=== PATIENT | female | born 1990 | race Caucasian/White ===

== ENCOUNTER 2017-03-21 09:47 | Emergency (ER) | payer BC ==
[~2017-03-21] VITALS: Ht 160 cm; Wt 71.0 kg
[~2017-03-21 09:47] MED LIST: LABE100T PO; NF-TORA10 PO; NORG1TAB14 PO; ONDAN4ODT PO; TAMS0.4C2 PO
--- OUTSIDE RECORDS SUMMARY | 2017-03-21 09:52 | XMS REPORT | Continuity of Care Document ---
Author Author [facility] Organization [facility] Address Unknown Phone Unavailable Support Name Relationship Address Phone MICKEY BERMUDEZ MD Caregiver [address] [place], [place] [address] JUAN HOOVER Next Of Kin [address] [place] [address] Insurance Providers Payer Name Policy Number Subscriber Name Relationship [facility] [id number] Juan Hoover R 01 Chief Complaint and Reason for Visit Chief Complaint Pain Reason for Visit [id number] Problems Medical Problems Problem Onset Date Status Ureterolithiasis ~06/04/2015 Active Medications Medication Dose Route Sig Days/Qty Instructions Order Date Discontinued Date Status Labetalol Hcl (Normodyne) 100 Mg ORAL TWICE A DAY 06/05/15 Active Tamsulosin Hcl 0.4 Mg ORAL DAILY 5 Qty 06/05/15 Active Ketorolac Tromethamine 10 Mg ORAL EVERY 6 HOURS PRN PAIN 12 Qty Active Ondansetron Hcl 4 Mg ORAL EVERY 4HRS PRN NAUSEA/VOMITING 10 Qty Active Social History No social history. Hospital Discharge Instructions No hospital discharge instructions. Plan of Care Discharge Date 06/05/15 5:16am Disposition 01 HOME OR SELF-CARE Condition at Discharge Stable Instructions/Education Provided Nephrolithiasis (ED) Prescriptions See Medications Section Additional Instructions/Education ED SHUKRI if any worse. Call [facility] if you have not heard from them by 11am. Some of your test results may not be complete prior to your leaving the Emergency Department. The Emergency Department is not authorized to give test results over the phone. Please contact the doctor's office listed in this packet of information for your final results. Follow up with your primary care physician or return to the Emergency Department for worsening or worrisome symptoms. * Emergency Department phone number: [phone], x [phone]* MEDICAL RECORD If you need copies of your X-rays, call [phone]. If you need copies of your medical record, including lab results, a signed authorization for release of records will be required. A telephone call for release of Health Information is not allowed. BILLING Billing can sometimes be confusing and frustrating. To help avoid confusion in the future, please take a moment to acquaint yourself with the billing parties for services. SERVICE BILLING LIBERTARIAN Emergency Room Services [facility] Physician Services [facility] X-rays [facility] Patients will receive bills for services from the appropriate provider. If you have any questions about your [facility] bill, our staff will be happy to assist you. Please call [phone], and ask for the billing department. THANK YOU for choosing [facility] as your emergency care provider! Functional Status No functional status results. Allergies, Adverse Reactions, Alerts Allergen Type Severity Reaction Status Last Updated No Known Allergies Allergy Unknown Active 06/05/15 Immunizations No immunization records. Vital Signs Acute Vital Signs Vital Response Date/Time Temperature (Fahrenheit) 98.1 Pulse 77 bpm Respirations 16 Height 5 ft 3 in Weight 169 lb Body Mass Index 29.0 kg/m^2 Results Test Source Date Result Interp. Ref. Range Comments Urine Mucus June 05, 2015 2:55am Rare Urine collection method Clean Catch Urine Squamous Epithelial Cells June 05, 2015 2:55am 2-5 /LPF Urine collection method Clean Catch Urine Bacteria June 05, 2015 2:55am Rare /HPF Urine collection method Clean Catch Urine WBC June 05, 2015 2:55am 2-5 /HPF Urine collection method Clean Catch Urine RBC June 05, 2015 2:55am 5-10 /HPF H Urine collection method Clean Catch Urine Collection Type June 05, 2015 2:55am Clean catch Urine collection method Clean Catch Volume Urine Centrifuged June 05, 2015 2:55am 12 ml Urine collection method Clean Catch Urine Leukocyte Esterase June 05, 2015 2:55am Negative Negative Urine collection method Clean Catch Urine Urobilinogen June 05, 2015 2:55am 0.2 mg/dL 0.2-1.0 Urine collection method Clean Catch Urine Bilirubin June 05, 2015 2:55am Negative Negative Urine collection method Clean Catch Urine Nitrite June 05, 2015 2:55am Negative Negative Urine collection method Clean Catch Urine Ketones June 05, 2015 2:55am Negative Negative Urine collection method Clean Catch Urine RBC (Auto) June 05, 2015 2:55am 1+ H Negative Urine collection method Clean Catch Urine Glucose (UA) June 05, 2015 2:55am Negative Negative Urine collection method Clean Catch Urine Protein June 05, 2015 2:55am Negative Negative Urine collection method Clean Catch Urine Specific [place] June 05, 2015 2:55am 1.015 1.005-1.030 Urine collection method Clean Catch Urine pH June 05, 2015 2:55am 7.0 5.0 - 8.0 Urine collection method Clean Catch Urine Clarity June 05, 2015 2:55am Clear Urine collection method Clean Catch Urine Color June 05, 2015 2:55am Yellow Urine collection method Clean Catch C-Reactive Protein June 05, 2015 2:55am 0.90 mg/dL N 0.0-0.9 Lipase June 05, 2015 2:55am 120 U/L N 23-300 Amylase Level June 05, 2015 2:55am 71 U/L N 25-115 Albumin/Globulin Ratio June 05, 2015 2:55am 1.294 N 1.1-1.8 Albumin June 05, 2015 2:55am 4.4 g/dL N 3.4-5.0 Total Protein June 05, 2015 2:55am 7.8 g/dL N 6.4-8.5 Alanine Aminotransferase (ALT/SGPT) June 05, 2015 2:55am 27 U/L L 30- 65 Aspartate Amino Transf (AST/SGOT) June 05, 2015 2:55am 22 U/L N 15-37 Alkaline Phosphatase June 05, 2015 2:55am 92 U/L N 38-126 Total Bilirubin June 05, 2015 2:55am 0.5 mg/dL N 0.1-1.0 Calcium/Ionized Calcium Ratio June 05, 2015 2:55am 4.0 mg/dL N 3.8- 4.6 Calcium Level June 05, 2015 2:55am 9.7 mg/dL N 8.8-10.8 Calculated Osmolality June 05, 2015 2:55am 281 mosm/L N 280-300 Glucose Level June 05, 2015 2:55am 98 mg/dL N 70-110 Estimated GFR (Non- June 05, 2015 2:55am 57.6 Estimat Glomerular Filtration Rate June 05, 2015 2:55am 69.7 BUN/Creatinine Ratio June 05, 2015 2:55am 21 H 10-20 Creatinine June 05, 2015 2:55am 1.14 mg/dL N 0.6-1.2 Blood Urea Nitrogen June 05, 2015 2:55am 24 mg/dL H 7-18 Anion Gap June 05, 2015 2:55am 15.8 MEQ/L H 3-15 Carbon Dioxide Level June 05, 2015 2:55am 27 mmol/L N 22-29 Chloride Level June 05, 2015 2:55am 104 mmol/L N 98-108 Potassium Level June 05, 2015 2:55am 3.8 mmol/L N 3.5-5.1 Sodium Level June 05, 2015 2:55am 143 mmol/L N 135-150 Basophils # (Auto) June 05, 2015 2:55am 0.0 10^3uL Eosinophils # (Auto) June 05, 2015 2:55am 0.2 10^3uL Monocytes # (Auto) June 05, 2015 2:55am 0.7 X10^3 Lymphocytes # (Auto) June 05, 2015 2:55am 3.5 X10^3 Neutrophils # (Auto) June 05, 2015 2:55am 5.9 X10^3 Basophils (%) (Auto) June 05, 2015 2:55am 0 % N 0-2 Eosinophils (%) (Auto) June 05, 2015 2:55am 2 % N 0-4 Monocytes (%) (Auto) June 05, 2015 2:55am 7 % N 3-11 Lymphocytes (%) (Auto) June 05, 2015 2:55am 34 % N 20-46 Neutrophils (%) (Auto) June 05, 2015 2:55am 57 % N 51-67 Mean Platelet Volume June 05, 2015 2:55am 9.5 FL N 6.0-9.5 Platelet Count June 05, 2015 2:55am 282 10^3uL N 150-450 Red Cell Distribution Width June 05, 2015 2:55am 13.1 % N 11.8-15.6 Mean Corpuscular Hemoglobin Concent June 05, 2015 2:55am 33.0 g/dL N 31.0-37.0 Mean Corpuscular Hemoglobin June 05, 2015 2:55am 27.6 PG N 26.0-34.0 Mean Corpuscular Volume June 05, 2015 2:55am 84 FL N 80-100 Hematocrit June 05, 2015 2:55am 41.50 % N 35.00-45.00 Hemoglobin June 05, 2015 2:55am 13.7 g/dL N 12.0-15.5 Red Blood Count June 05, 2015 2:55am 4.96 10^6uL N 4.00-5.00 White Blood Count June 05, 2015 2:55am 10.34 10^3uL N 4.0-11.0 Procedures No known history of procedures. Encounters Encounter Location Date/Time Departed Emergency Room [facility] 06/05/15 2:28am Recent Diagnosis
[2017-03-21] MEDS ORDERED: LABETALOL 100 MG PO ONE (10:40)
[2017-03-21] MEDS ORDERED: GUAI1TBM7 PO (10:43)
[2017-03-21] MEDS ORDERED: DM H1CAP4 PO (10:43)
[2017-03-21 11:41] VITALS: BP 142/99
== END 2017-03-21 11:40 | disposition home or self-care (01) ==
LOC: EDUNIT# 09:47 → ED 09:49
DX: I10 Essential (primary) hypertension (principal); J06.9 Acute upper respiratory infection, unspecified
CPT/HCPCS: 99282